=== PATIENT | female | born 1945 | race Caucasian/White ===

== ENCOUNTER 2023-05-06 06:52 | Emergency (ER) | payer MEDICARE, SELFPAY ==
[2023-05-06] VITALS (7 sets, daily range): BP systolic 119–150; BP diastolic 76–98; PULSE 18–124; RESP 12–18; TEMP 36.6; O2SAT 95–96; BMI 23.9
--- NOTE | 2023-05-06 07:13 | EKG12_ITS ---
Test Reason : PALP Blood Pressure : / mmHG Vent. Rate : 116 BPM Atrial Rate : 116 BPM P-R Int : 152 ms QRS Dur : 112 ms QT Int : 340 ms P-R-T Axes : 064 016 083 degrees QTc Int : 472 ms Sinus Tachycardia with Premature atrial complexes Low voltage QRS Cannot rule out Anteroseptal infarct , age undetermined Abnormal ECG Left bundle branch block Confirmed by MARIANNA HOUSER MD ([id number]), content editor JAGJIT MONTES ([id number]) on 05/08/2023 2:30:43 PM Referred By: KATE Confirmed By:MARIANNA HOUSER MD
--- NOTE | 2023-05-06 07:13 | EDS_ITS ---
HPI History of Present Illness Chief Complaint: Palpitations Informant: patient and spouse/S.O. Narrative Narrative: 77-year-old female presenting to the emergency room with chief complaint of fast heart rate. Patient states she woke this morning after an uneventful night and felt that something was not quite right. She states she took her pulse and noted that her heart rate was fast. She notes that after she had COVID a couple years ago her heart rate was fast at about 107 bpm. She followed up with cardiology and had 2 echocardiograms. She states that they found something under her heart that they checked again and was stable. The patient was able to pull up her results on her phone and the echocardiogram report stated that she had a ejection fraction of 60% and a small pericardial effusion without hemodynamic compromise that has been stable. Her heart rate had subsequently normalized. She states she takes lisinopril once a day. She denies any new pain or shortness of breath diaphoresis syncope/near syncope or any other new symptoms. No recent weight gain weight loss. She does note some bilateral shoulder discomfort which she notes is not unusual for her after she does the 0-turn lawnmower. No history of sleep apnea, hyper/hypothyroidism. No recent infectious-like symptoms. [facility] Medical History Cervical cancer Tachycardia Home Medications lisinopril 20 mg-hydrochlorothiazide 25 mg tablet 1 tab PO DAILY 05/06/23 [History Last Taken Unknown] metoprolol tartrate 25 mg tablet 25 mg PO DAILY #30 tabs 05/06/23 [Rx Last Taken Unknown] Allergy/AdvReac Type Severity Reaction Status Date / Time No Known Allergies Allergy Verified 05/06/23 06:54 Social History Smoking Status: Former smoker ROS ROS ED Constitutional Constitutional ED: Denies chills, fever(s) or weight loss Eyes Eyes: Denies change in vision or diplopia ENT ENT ED: Denies ear pain, rhinorrhea or sore throat Cardiovascular Cardiovascular: Reports racing heartbeat; Denies chest pain, orthopnea or palpitations Respiratory/Chest Respiratory/Chest: Denies cough, dyspnea or orthopnea Gastrointestinal Gastrointestinal: Denies abdominal pain, diarrhea, nausea or vomiting Genitourinary Genitourinary ED: Denies dysuria, hematuria or urinary frequency Musculoskeletal Musculoskeletal: Reports other Details: See history of present illness ; Denies arthralgias, back pain, myalgias or neck pain Integumentary Denies abscess or rash Neurologic Neurologic: Denies headache(s), paresthesias or weakness Psychiatric Psychiatric: Denies anxiety, depression, suicidal ideation or suicidal thoughts Endocrine Endocrinology: Denies cold intolerance, heat intolerance, polydipsia, polyphagia or polyuria Hematologic/Lymphatic Hematologic/Lymphatic: Reports systems reviewed and no addt'l complaints, except as documented; Denies easy bruising Allergic/Immunologic Allergic/Immunologic ED: Denies mouth swelling, tongue swelling or urticaria EXAM Physical Exam Const Vital Signs: 05/06/23 06:55 05/06/23 06:55 05/06/23 07:52 Temperature 98 F Temperature Source Temporal Pulse Rate 124 H 99 Respiratory Rate 16 15 Respiratory Effort Normal Blood Pressure 150/98 H 119/81 H Blood Pressure Mean 115 93 Pulse Ox 96 96 Oxygen Delivery Method Room Air 05/06/23 08:00 05/06/23 09:00 05/06/23 10:00 Temperature Temperature Source Pulse Rate 95 18 L Respiratory Rate 12 Respiratory Effort Blood Pressure 119/81 H 124/76 H Blood Pressure Mean 93 92 Pulse Ox 95 Oxygen Delivery Method Room Air 05/06/23 11:15 Temperature Temperature Source Pulse Rate 105 H Respiratory Rate 18 Respiratory Effort Blood Pressure 122/78 H Blood Pressure Mean 92 Pulse Ox 95 Oxygen Delivery Method Room Air Positive well nourished and well developed General Appearance ED: well developed HEENT Reports normocephalic, head/scalp atraumatic and moist mucous membranes Eyes PERRL and EOMs intact bilaterally Neck no lymphadenopathy, supple and no JVD Chest Wall inspection of chest normal and palpation of chest normal Resp normal respiratory effort and clear to auscultation bilaterally Cardio regular rate, regular rhythm and no murmurs Rate: tachycardic GI normal to inspection, nondistended, normoactive bowel sounds and non-tender Palpation: soft Back/Spine no CVA tenderness and normal ROM Extremity normal to inspection General Extremety ED: Negative for edema General Extremity: Negative for edema Neuro oriented x3 and CN's II-XII intact bilaterally Sensorium / Orientation: alert Motor Exam: strength 5/5 throughout Psych mental status grossly normal Mood & Affect: Negative for depressed or tearful Skin no rashes or lesions noted and no wounds MDM MDM MDM Narrative Medical decision making narrative: EKG is a sinus rhythm with a left bundle branch block. This left bundle branch block is new when compared to 2020. I do not have a more recent EKG to compare with today's. A repeat EKG continues to show sinus rhythm. 2 sets of cardiac enzymes are normal. TSH is normal. Sodium potassium magnesium within normal limits. She is not anemic. My interpretation of the chest x-ray is no acute process. Spoke with on-call cardiology Dr. Pugh. He recommends starting a low-dose beta-hilda. I discussed the case with the patient and recommended continued cardiology follow-up. She states she would like to follow-up with cardiology with the [facility] in particular her 's director of recreation therapy. Patient may have an underlying atrial or ventricular dysrhythmia that is not detected at this time. Patient notes understanding of return instructions. Lab Data Attestation: I reviewed the patient's lab results. Labs: Laboratory Results - last 24 hr 05/06/23 05/06/23 07:29 09:40 WBC 6.3 RBC 4.32 Hgb 13.3 Hct 40.7 MCV 94.2 MCH 30.8 MCHC 32.7 RDW Std Deviation 47.0 H RDW Coeff of Yessenia 13.5 Plt Count 231 MPV 10.5 Immature Gran % (Auto) 0.500 Neut % (Auto) 70.7 H Lymph % (Auto) 18.5 L [place] % (Auto) 7.8 Eos % (Auto) 1.9 Baso % (Auto) 0.6 Absolute Neuts (auto) 4.4 Absolute Lymphs (auto) 1.16 Nucleated RBC % 0 D-Dimer Quant (PE/DVT) 0.45 Sodium 138 Potassium 3.6 Chloride 108 H Carbon Dioxide 25.0 Anion Gap 5 BUN 21 H Creatinine 0.95 Estim Creat Clear Calc 52.65 Est GFR (MDRD) Af Amer 73 Est GFR (MDRD) Non-Af 60 BUN/Creatinine Ratio 22.0 H Glucose 117 H Calcium 9.9 Magnesium 1.7 Total Bilirubin 0.50 AST 16 ALT 24 Alkaline Phosphatase 82 Troponin I High Sens 9 9 Total Protein 6.9 Albumin 3.5 Globulin 3.4 Albumin/Globulin Ratio 1.0 TSH 2.72 Radiography Diagnostic Testing: Clinical Impression(s) from Imaging Studies Chest X-Ray 05/06/23 07:33 IMPRESSION: Stable exam. Pulmonary hypoinflation and mild chronic lung changes. Electronically Signed: Sandra Moya MD at 8:02 EDT , EKG Initial EKG: Attestation: I personally reviewed and interpreted this EKG as follows: Interpretation: Sinus Tachycardia Comments: Sinus tachycardia noted with a ventricular rate of 116 bpm. PAC noted. Left bundle branch block noted. Follow-up EKG: Attestation: I personally reviewed and interpreted this EKG as follows: Comments: Sinus rhythm with a ventricular rate of 97 bpm. Left bundle branch block again noted. Differential Diagnosis Chest pain/SOB: pulmonary embolism, ACS, pneumothorax, pneumonia, aortic dissection and CHF Discharge Plan Triage Chief Complaint: Palpitations ED Provider: Anders Hartmann Dx/Rx/DC Orders Clinical Impression: Heart palpitations Instructions: ED About Arrhythmias Prescriptions: New metoprolol tartrate 25 mg tablet 25 mg PO DAILY Qty: 30 0RF No Action lisinopril-hydrochlorothiazide 20-25 mg tablet 1 tab PO DAILY Primary Care Provider: Zhao Sauceda Referrals: Town Doctor,Out of [Non-Staff] - Activity Restrictions/Additional Instructions: Follow-up with cardiology of your choice. As discussed you may certainly see [facility]. Disposition Disposition: Home, Self Care
--- NOTE | 2023-05-06 07:33 | RAD_ITS ---
EXAM: XR CHEST, 1 VIEW CLINICAL INDICATION: palpitations TECHNIQUE: Frontal view of the chest. COMPARISON: August 12, 2014. FINDINGS: LUNGS AND PLEURAL SPACES: Pulmonary hyperinflation, mild hyperlucency, increased scattered interstitial markings. No pneumothorax. No effusion. HEART: Unremarkable. Cardiac silhouette not enlarged. MEDIASTINUM: Central airways and mediastinal contour are unremarkable. BONES/JOINTS: Unremarkable. SOFT TISSUES: Unremarkable. RAD/Chest 1 View (Portable) IMPRESSION: Stable exam. Pulmonary hypoinflation and mild chronic lung changes. Electronically Signed: Sandra Moya MD at 8:02 EDT ,
[2023-05-06 07:41] LABS: Absolute Lymphocyte Count 1.16 X10^3/uL (0.83-4.51); Absolute Neutrophil Count 4.4 X10^3/uL (2.0-7.7); Basophil# 0.04 X10^3/uL; Basophil% 0.6 % (0-1); Eosinophil# 0.12 X10^3/uL; Eosinophils% 1.9 % (0-5); Hematocrit 40.7 % (37-47); Hemoglobin 13.3 g/dL (12.0-15.0); Lymphocyte # 1.16 X10^3/ul (0.83-4.51); Lymphocyte % 18.5 % (19-41); Mean Corp Hgb Conc 32.7 g/dL (32-36); Mean Corpuscular Hgb 30.8 pg (27.0-32.0); Mean Corpuscular Volume 94.2 fL (81-99); Mean Platelet Vol. 10.5 fl (6.2-12.0); Monocyte# 0.49 X10^3/uL; Monocyte% 7.8 % (0-10); NRBC Flagged by Analyzer 0 % (0-5); Neutrophil # 4.42 X10^3/uL (2.7-7.7); Neutrophil % 70.7 % (47-70); Platelet Count 231 K/mm3 (150-450); RBC Distribution Width CV 13.5 % (11.6-14.6); Red Blood Count 4.32 M/mm3 (4.2-5.4); White Blood Count 6.3 K/mm3 (4.4-11.0)
[2023-05-06 07:59] LABS: AST(SGOT) 16 U/L (15-37); Alanine Aminotransfer ALT/SGPT 24 U/L (13-56); Albumin, Serum 3.5 g/dL (3.2-5.0); Alkaline Phosphatase 82 U/L (45-117); Anion Gap 5 (5-15); BUN 21 mg/dL (7-18); Calcium,Total 9.9 mg/dL (8.5-10.1); Chloride 108 mmol/L (98-107); Creatinine, Serum 0.95 mg/dL (0.55-1.02); EST Glomerular Filtration Rate 60 mL/min (>60); Est Glom Filt Rate - Afr Amer 73 mL/min (>60); Estimated Creatinine Clearance 52.65 ml/min; Globulin 3.4 g/dL (2.2-4.2); Glucose 117 mg/dL (74-106); Magnesium 1.7 mg/dL (1.6-2.6); Potassium 3.6 mmol/L (3.5-5.1); Protein, Total 6.9 g/dL (6.4-8.2); Sodium Level 138 mmol/L (136-145); Thyroid Stim Hormone (TSH) 2.72 uIU/mL (0.358-3.74); Troponin-I HS 9 pg/mL (3.0-54.0)
[2023-05-06 08:11] LABS: D-Dimer Quantitative (DVT/PE) 0.45 FEU/ug/m (0.27-0.49)
--- NOTE | 2023-05-06 09:58 | EKG12_ITS ---
Test Reason : REPEAT Blood Pressure : / mmHG Vent. Rate : 097 BPM Atrial Rate : 097 BPM P-R Int : 122 ms QRS Dur : 122 ms QT Int : 378 ms P-R-T Axes : 061 -14 072 degrees QTc Int : 480 ms Normal sinus rhythm with sinus arrhythmia Left bundle branch block Abnormal ECG When compared with ECG of 06-MAY-2023 07:05, MANUAL COMPARISON REQUIRED, DATA IS UNCONFIRMED Confirmed by MIK WHALEN, MARIANNA ([id number]), avid editor ED ROMERO ([id number]) on 05/16/2023 11:24:17 AM Referred By: Confirmed By:MARIANNA HOUSER MD
[2023-05-06 10:05] LABS: Troponin-I HS 9 pg/mL (3.0-54.0)
== END 2023-05-06 12:01 | disposition home or self-care (01) ==
PROVIDERS: Emergency Provider Emergency Medicine; PCP Family Medicine; Visit Provider Emergency Medicine
DX: R00.2 Palpitations (principal); Z79.899 Other long term (current) drug therapy; Z86.16 Personal history of COVID-19; Z87.891 Personal history of nicotine dependence
CPT/HCPCS: 71045; 80053; 83735; 84443; 84484; 85025; 85379; 93005; 99284; A4216

== ENCOUNTER → 2023-06-01 | Outpatient (CLI) | payer MEDICARE, SELFPAY ==
--- NOTE | 2023-06-01 10:26 | STRESSREP ---
Stress Test Report Date: 06/01/2023 Procedure: Pharmacologic stress nuclear imaging study Indications: Palpitations Consent: Per the patient Procedure: The patient underwent pharmacologic (Regadenoson 0.4mg ) evaluation with a peak heart rate of 155 beats per minute (107%predicted maximal heart rate) and a peak blood pressure of 132/82 mmHg. The baseline ECG demonstrated sinus rhythm with left bundle branch block. The peak pharmacologic ECG demonstrated sinus tachycardia. No diagnostic ischemic changes secondary to baseline left bundle branch block. Rare PVC noted during recovery. There was no complaint of chest discomfort during pharmacologic infusion or recovery. The patient was injected with 11.0 millicuries of technetium 99m Cardiolite and subsequently rest SPECT Cardiolite nuclear imaging was obtained in the horizontal long, vertical long, and short axis views. The patient underwent pharmacologic (Regadenoson) evaluation. The patient was injected with 34.0 millicuries of technetium 99m Cardiolite and subsequently stress SPECT Cardiolite nuclear imaging was obtained in the horizontal long, vertical long, and short axis views. A gated Cardiolite study at peak stress was obtained. The examination was stopped secondary to completion of protocol. Rest and stress SPECT Cardiolite nuclear imaging status post realignment, normalization, and attenuation correction demonstrate mildly reduced uptake at the apex both at rest as well as in stress images. Normal wall motion. Consider breast attenuation artifact. There is end systolic thickening and brightening. The gated Cardiolite study demonstrates myocardial thickening and inward wall motion. The reported LVEF is 68%. Impression: 1. Pharmacologic (Regadenoson) evaluation 2. Peak pharmacologic ECG with no diagnostic ischemic changes. 3. Rare PVC noted in recovery. 5. Mildly reduced uptake both at rest as well as poststress at the apex. Likely attenuation artifact. No reversible ischemic changes. 6. The gated Cardiolite study reports an LVEF of 68%. This note was generated with [email or web address] software. It may contain incorrect words, spelling, and punctuation that were not noted in checking the note before signing.
== END | disposition home or self-care (01) ==
PROVIDERS: PCP Family Medicine; Referring Provider Internal Medicine Cardiovascular Disease; Visit Provider Internal Medicine Cardiovascular Disease
DX: R00.2 Palpitations (principal); R94.31 Abnormal electrocardiogram [ECG] [EKG]
CPT/HCPCS: 78452; 93017; A9500; A4216; J2785

== ENCOUNTER → 2023-06-05 | Outpatient (CLI) | payer MEDICARE, SELFPAY | END | disposition home or self-care (01) | LOC: PSN 12:20 | PROVIDERS: PCP Family Medicine; Referring Provider Internal Medicine Cardiovascular Disease; Visit Provider Internal Medicine Cardiovascular Disease | DX: R00.2 Palpitations (principal); R00.0 Tachycardia, unspecified; I10 Essential (primary) hypertension | CPT/HCPCS: 93225; 93226 ==